=== PATIENT | male | born 1995 | race Caucasian/White ===

== ENCOUNTER 2021-04-30 23:33 | Emergency (ER) | payer SELFPAY ==
[2021-04-30 23:39] VITALS: BP 126/81; PULSE 98; TEMP 97; BMI 52.2
[2021-05-01] MEDS ORDERED: OFLOXACIN 0.3% OTIC SOLUTION 5 ML BOTTLE AD ONE (01:46)
[2021-05-01] MEDS ORDERED: AMOX TR/POT CLAV 875MG/125MG TABLETS (FP) PO ONE ×2 (03:02→03:24)
== END 2021-05-01 03:43 | disposition home or self-care (01) ==
LOC: JER 23:33
DX: H60.391 Other infective otitis externa, right ear (principal); L03.811 Cellulitis of head [any part, except face]
CPT/HCPCS: 70450-TC; 82962; 99284-25

== ENCOUNTER 2025-01-09 16:35 | Emergency (ER) | payer OTHER ==
[2025-01-09 16:40] VITALS: BP 122/69; PULSE 91; RESP 20; TEMP 98.8; BMI 43.7
[2025-01-09] MEDS ORDERED: IBUPROFEN 400 MG TABLET (FP) PO ONE (18:24)
[2025-01-09] MEDS: IBUPROFEN 400 MG TABLET (FP) PO ONE (18:30)
== END 2025-01-09 20:20 | disposition home or self-care (01) ==
LOC: JER 16:35 → JERFT 16:35
DX: S93.402A Sprain of unspecified ligament of left ankle, initial encounter (principal); X50.1XXA Overexertion from prolonged static or awkward postures, initial encounter
CPT/HCPCS: 73610-TC-LT-FY; 99283-25

== ENCOUNTER 2025-03-08 06:26 | Emergency (ER) | payer OTHER ==
[2025-03-08 06:34] VITALS: BMI 45.9
[2025-03-08] MEDS ORDERED: ACETAMINOPHEN INJECTION 100 ML ONE (06:49)
[2025-03-08 06:50] LABS: ABSOLUTE IMMATURE GRANULOCYTES 0.06 x10^3/uL (0.0-0.031); BASOPHILS # 0.06 x10^3/uL (0.01-0.08); EOSINOPHIL % 1.5 % (0.8-7.0); EOSINOPHILS # 0.18 x10^3/uL (0.04-0.54); HEMATOCRIT 40.8 % (40.1-51.0); HEMOGLOBIN 13.5 g/dL (13.7-17.5); MCHC 33.1 g/dl (32.3-36.5); MEAN CELL VOLUME 81.8 fl (79.0-92.2); MEAN PLT VOLUME 8.9 fl (9.4-12.4); MONOCYTE # 0.96 x10^3/uL (0.30-0.82); MONOCYTE % 7.8 % (5.3-12.2); PLATELET COUNT 317 x10^3/uL (163-337); RDW 14.1 % (12.0-15.6)
[2025-03-08] MEDS: ACETAMINOPHEN 1000 MG/100 ML BAG IVPB ONE (06:52)
[2025-03-08 07:00] LABS: INR 1.12 (0.83-1.09); PROTHROMBIN TIME (PATIENT) 12.3 SEC (9.7-13.0)
[2025-03-08 07:03] LABS: ACTIVATED PTT 28.6 SECONDS (25.2-36.5)
[2025-03-08 07:19] LABS: POTASSIUM 3.8 mmol/L (3.5-5.1)
[2025-03-08 07:21] LABS: ALBUMIN 3.4 g/dl (3.4-5.0); BLOOD UREA NITROGEN 19.2 mg/dL (7-18); CALCIUM 9.3 mg/dL (8.5-10.1)
[2025-03-08 07:25] LABS: CREATININE 0.8 mg/dL (0.55-1.3)
[2025-03-08 07:26] LABS: BILIRUBIN,TOTAL 0.3 mg/dL (0.2-1); TOT PROT 7.8 g/dl (6.4-8.2)
[2025-03-08] MEDS ORDERED: DEXAMETHASONE SOD PHOSPHATE 10 MG/1 ML VIAL ONE (07:31)
[2025-03-08] MEDS ORDERED: DEXAMETHASONE SOD PHOSPHATE 10 MG/1 ML VIAL IVPUSH ONE (07:33)
[2025-03-08] MEDS: DEXAMETHASONE SOD PHOSPHATE 10 MG/1 ML VIAL IVPUSH ONE (07:39)
[2025-03-08] MEDS ORDERED: AMPICILLIN NA/SULBACTAM NA 3 GM/100 ML BAG IVPB ONE (07:40)
[2025-03-08] MEDS: AMPICILLIN NA/SULBACTAM NA 3 GM in SODIUM CHLORIDE 100 ML IVPB ONE (07:47)
[2025-03-08] MEDS ORDERED: RACEPINEPHRINE IH SOL 2.25% 11.25 MG/0.5 ML VIAL NEB ONE (08:20)
[2025-03-08] MEDS: RACEPINEPHRINE IH SOL 2.25% 11.25 MG/0.5 ML VIAL IH ONE (09:06)
[2025-03-08 10:15] VITALS: BP 132/73; PULSE 93; RESP 17; TEMP 98.6
== END 2025-03-08 10:26 | disposition short-term general hospital (02) ==
LOC: JER 06:26
PROC: 3E03329 Introduction of Other Anti-infective into Peripheral Vein, Percutaneous Approach (ICD-10-PCS; principal; 2025-03-08)
PROC: 3E033NZ Introduction of Analgesics, Hypnotics, Sedatives into Peripheral Vein, Percutaneous Approach (ICD-10-PCS; 2025-03-08)
PROC: 3E033GC Introduction of Other Therapeutic Substance into Peripheral Vein, Percutaneous Approach (ICD-10-PCS; 2025-03-08)
DX: K12.2 Cellulitis and abscess of mouth (principal)
CPT/HCPCS: 0241U-QW; 36415; 70491-TC; 80053; 83735; 85025; 85610; 85730; 86850; 86900; 86901; 87070; 93005; 93010; 99285-25; J0131; J1100